=== PATIENT | female | born 2000 | race African-American/Black ===

== ENCOUNTER 2018-04-01 14:25 | Emergency (ER) | payer OTHER ==
[~2018-04-01] VITALS: Ht 157.5 cm; Wt 90.7 kg
[2018-04-01 14:30] VITALS: BP 109/77
[2018-04-01] MEDS ORDERED: MOBIC15 MG PO (15:15)
== END 2018-04-01 15:20 | disposition home or self-care (01) ==
LOC: ER 14:25
DX: M25.562 Pain in left knee (principal); Z91.010 Allergy to peanuts